=== PATIENT | male | born 1995 | race Caucasian/White ===

== ENCOUNTER 2019-07-30 10:45 | Emergency (ER) | payer BC ==
[2019-07-30] MEDS ORDERED: Sodium Chloride 0.9% 10 ML Syringe FLUSH PRN (11:19)
[2019-07-30] MEDS ORDERED: cefTRIAXone 2 GM in Sodium Chloride 0.9% 100 ML IV ONE ×2 (11:21→11:23)
--- NOTE | 2019-07-30 11:52 | EDM.PDOC ---
ED HPI GENERAL MEDICAL PROBLEM - General Chief Complaint: Skin Complaint Stated Complaint: LEG RED AND SWOLLED Time Seen by Provider: 07/30/19 10:53 Source of Information: Reports: Patient History Limitations: Reports: No Limitations - History of Present Illness INITIAL COMMENTS - FREE TEXT/NARRATIVE: The patient presents with left leg swelling, pain, redness and drainage. He said this all started about 6 weeks ago. 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 He had pain and swelling and in about a week the pain and swelling went away. A few days ago he started having pain and swelling. He went to the walk in clinic on Wednesday and they did an US and he was told there was just some fluid but no DVT. He was put on zithromax for bronchitis then. The swelling and pain has gotten worse and now there is some drainage. He has no fever or chills. He has no other problems like chest pain, abdominal pain, nausea or vomiting. He has no medical problems. Onset: Gradual Duration: Week(s): Location: Reports: Lower Extremity, Left (lower leg) Quality: Reports: Sharp Severity: Moderate Improves with: Reports: None Worsens with: Reports: None Associated Symptoms: Reports: No Other Symptoms Left Lower Leg Pain Score (Numeric/FACES): 6 - Related Data Allergies Allergy/AdvReac Type Severity Reaction Status Date / Time No Known Allergies Allergy Verified 07/30/19 11:02 Home Meds: Home Meds Doxycycline [Vibramycin] 100 mg PO BID #20 cap 07/30/19 [Rx] Past Medical History - Past Health History Medical/Surgical History: Denies Medical/Surgical History Social & Family History - Tobacco Use Smoking Status *Q: Never Smoker ED ROS GENERAL - Review of Systems Review Of Systems: See Below Constitutional: Reports: No Symptoms HEENT: Reports: No Symptoms Respiratory: Reports: No Symptoms Cardiovascular: Reports: No Symptoms Endocrine: Reports: No Symptoms GI/Abdominal: Reports: No Symptoms : Reports: No Symptoms Musculoskeletal: Reports: Other (Left leg swelling, erythema and drainage) ED EXAM, SKIN/RASH Exam: See Below Exam Limited By: No Limitations General Appearance: Alert, No Apparent Distress Ears: Normal External Exam Nose: Normal Inspection Head: Atraumatic, Normocephalic Neck: Normal Inspection Respiratory/Chest: No Respiratory Distress, Lungs Clear, Normal Breath Sounds Cardiovascular: Regular Rate, Rhythm, No Edema, No Murmur GI/Abdominal: Soft, Non-Tender, No Organomegaly, No Mass Back Exam: Normal Inspection Extremities: Other (Moderate edema to the left leg with erythema and some fluid under the skin to the middle of the erythema with some drainage) Course - Vital Signs Last Recorded V/S: Last Vital Signs Temp 98.0 F 07/30/19 10:57 Pulse 100 07/30/19 10:57 Resp 18 07/30/19 10:57 BP 140/72 07/30/19 10:57 Pulse Ox 100 07/30/19 10:57 - Orders/Labs/Meds Orders: Active Orders 24 hr Category Date Time Status Cardiac Monitoring [RC] . DIRECTED Care 07/30/19 11:19 Active Peripheral IV Care [RC] . DIRECTED Care 07/30/19 11:20 Active CULTURE ANAEROBIC + SMEAR [RM] Stat Lab 07/30/19 11:17 Received Sodium Chloride 0.9% [Saline Flush] Med 07/30/19 11:19 Active 10 ml FLUSH ASDIRECTED PRN Peripheral IV Insertion Adult [OM.PC] Stat Oth 07/30/19 11:19 Ordered Medication Orders Sodium Chloride (Saline Flush) 10 ml FLUSH ASDIRECTED PRN PRN Reason: Keep Vein Open Last Admin: 07/30/19 11:30 Dose: 10 ml Labs: Laboratory Tests 07/30/19 07/30/19 07/30/19 Range/Units 11:58 11:58 11:58 WBC 8.11 (4.23-9.07) K/mm3 RBC 4.75 (4.63-6.08) M/mm3 Hgb 13.9 (13.7-17.5) gm/dl Hct 41.2 (40.1-51.0) % MCV 86.7 (79.0-92.2) fl MCH 29.3 (25.7-32.2) pg MCHC 33.7 (32.2-35.5) g/dl RDW Std Deviation 39.9 (35.1-43.9) fL Plt Count 356 H (163-337) K/mm3 MPV 9.0 L (9.4-12.3) fl Neut % (Auto) 76.8 H (34.0-67.9) % Lymph % (Auto) 14.1 L (21.8-53.1) % [place] % (Auto) 7.3 (5.3-12.2) % Eos % (Auto) 1.0 (0.8-7.0) Baso % (Auto) 0.2 (0.1-1.2) % Neut # (Auto) 6.23 H (1.78-5.38) K/mm3 Lymph # (Auto) 1.14 L (1.32-3.57) K/mm3 [place] # (Auto) 0.59 (0.30-0.82) K/mm3 Eos # (Auto) 0.08 (0.04-0.54) K/mm3 Baso # (Auto) 0.02 (0.01-0.08) K/mm3 Sodium 137 (136-145) mEq/L Potassium 4.1 (3.5-5.1) mEq/L Chloride 104 (98-107) mEq/L Carbon Dioxide 28 (21-32) mEq/L Anion Gap 9.1 (5-15) BUN 10 (7-18) mg/dL Creatinine 1.1 (0.7-1.3) mg/dL Est Cr Clr Drug Dosing 123.51 mL/min Estimated GFR (MDRD) > 60 (>60) mL/min BUN/Creatinine Ratio 9.1 L (14-18) Glucose 100 (74-106) mg/dL Lactic Acid 1.7 (0.4-2.0) mmol/L Calcium 9.2 (8.5-10.1) mg/dL Total Bilirubin 0.5 (0.2-1.0) mg/dL AST 18 (15-37) U/L ALT 48 (16-63) U/L Alkaline Phosphatase 86 (46-116) U/L C-Reactive Protein 10.0 H* (<1.0) mg/dL Total Protein 8.1 (6.4-8.2) g/dl Albumin 3.0 L (3.4-5.0) g/dl Globulin 5.1 gm/dL Albumin/Globulin Ratio 0.6 L (1-2) Meds: Medications Generic Name Dose Route Start Last Admin Trade Name Freq PRN Reason Stop Dose Admin Sodium Chloride 10 ml 07/30/19 11:19 07/30/19 11:30 Saline Flush FLUSH 10 ml ASDIRECTED PRN Administration Keep Vein Open Discontinued Medications Generic Name Dose Route Start Last Admin Trade Name Kobe PRN Reason Stop Dose Admin Ceftriaxone Sodium 2 gm/ 100 mls @ 200 mls/hr 07/30/19 11:21 07/30/19 11:31 Sodium Chloride IV 07/30/19 11:50 Not Given ONETIME ONE Ceftriaxone Sodium 2 gm/ 100 mls @ 200 mls/hr 07/30/19 11:23 07/30/19 11:30 Sodium Chloride IV 07/30/19 11:52 200 mls/hr ONETIME ONE Administration - Re-Assessments/Exams Free Text/Narrative Re-Assessment/Exam: 07/30/19 11:55 I ordered an IV saline lock, rocephin 2 grams IV, labs and cultures from the drainage of the wound. 07/30/19 12:39 His CBC and CMP look good. His CRP is elevated at 10. I do not feel he is a candidate for inpatient admission at this time. I will get him on some doxycycline and have him follow up with Dr Bundy in 3 to 5 days. Departure - Departure Time of Disposition: 12:45 Disposition: Home, Self-Care 01 Condition: Good Clinical Impression: Cellulitis Qualifiers: Site of cellulitis: extremity Site of cellulitis of extremity: lower extremity Laterality: left Qualified Code(s): L03.116 - Cellulitis of left lower limb - Discharge Information *PRESCRIPTION DRUG MONITORING PROGRAM REVIEWED*: No *COPY OF PRESCRIPTION DRUG MONITORING REPORT IN PATIENT MARILEE: No Prescriptions: Doxycycline [Vibramycin] 100 mg PO BID #20 cap Referrals: PCP,Not In Area [Primary Care Provider] - Shawn Bundy MD [Ordering Only Provider] - 3 Days Forms: ED Department Discharge Additional Instructions: Take the doxycycline 2 times per day for 10 days. Put warm compresses on the affected area 3 to 4 times per day for 3 to 5 days. Try to elevate your leg as much as you can for 2 days. Take motrin or tylenol as needed for any pain. Please return if you are worse. - My Orders Last 24 Hours: My Active Orders 07/30/19 11:17 CULTURE ANAEROBIC + SMEAR [RM] Stat 07/30/19 11:19 Cardiac Monitoring [RC] . DIRECTED Sodium Chloride 0.9% [Saline Flush] 10 ml FLUSH ASDIRECTED PRN Peripheral IV Insertion Adult [OM.PC] Stat 07/30/19 11:20 Peripheral IV Care [RC] . DIRECTED - Assessment/Plan Last 24 Hours: My Active Orders 07/30/19 11:17 CULTURE ANAEROBIC + SMEAR [RM] Stat 07/30/19 11:19 Cardiac Monitoring [RC] . DIRECTED Sodium Chloride 0.9% [Saline Flush] 10 ml FLUSH ASDIRECTED PRN Peripheral IV Insertion Adult [OM.PC] Stat 07/30/19 11:20 Peripheral IV Care [RC] . DIRECTED
== END 2019-07-30 12:53 | disposition home or self-care (01) ==
LOC: JD.ED 10:45
DX: L03.116 Cellulitis of left lower limb (principal)
CPT/HCPCS: 36415; 80053; 83605; 85025; 86140; 87075; 87205; 96365; 99283; J0696; J7030